=== PATIENT | female | born 1950 | race Caucasian/White ===

== ENCOUNTER 2020-05-28 12:42 | Inpatient (IN) | payer OTHER ==
[2020-05-27] MEDS: INSULIN LISPRO 100 UNITS/ML SUBCUT SCH (21:00)
[~2020-05-28] VITALS: Ht 154.9 cm; Wt 85.3 kg
[2020-05-28 13:55] LABS: BASOPHILS % 0.5 % (0.0-2.0); EOSINOPHILS % 1.6 % (0.0-5.0); HEMATOCRIT. 34.6 % (36.0-48.0); HEMOGLOBIN. 11.5 g/dL (12.0-16.0); LYMPHOCYTES % 23.1 % (20.0-50.0); MEAN CORPUSCULAR HEMOGLOBIN 28.2 pg (28.0-32.0); MEAN CORPUSCULAR VOLUME 85.3 fL (81.0-99.0); MEAN PLATELET VOLUME 8.8 fl (7.4-10.4); MONOCYTES % 9.4 % (2.0-8.0); NEUTROPHILS % 65.4 % (40.0-76.0); PLATELET 239 x1000/uL (130-400); RED BLOOD CELL COUNT 4.06 mill/uL (4.2-5.4); RED CELL DISTRIBUTION WIDTH 14.5 % (11.6-14.6)
[2020-05-28 14:00] LABS: CHLORIDE 107 mEq/L (98-107)
[2020-05-28 14:04] LABS: PROTHROMBIN TIME 10.1 sec (9.6-11.0)
[2020-05-28 14:07] LABS: CLARITY URINE TURBID (CLEAR); COLOR URINE YELLOW (YELLOW); KETONES URINE NEGATIVE (NEGATIVE); LEUKOCYTE ESTERASE URINE TRACE (NEGATIVE); NITRITE URINE NEGATIVE (NEGATIVE); OCCULT BLOOD URINE 3+ (NEGATIVE); PH URINE 6.5 (4.5-8.0); PROTEIN URINE NEGATIVE (NEGATIVE); SPECIFIC GRAVITY URINE 1.019 (1.005-1.030)
[2020-05-28] MEDS ORDERED: TETRACAINE 0.5% OPHTH DROPS 4ML RIGHTEYE ONE (15:30)
[2020-05-28] MEDS ORDERED: FLUORESCEIN SODIUM 1MG/STRIP RIGHTEYE ONE (15:30)
[2020-05-28] MEDS ORDERED: LORAZEPAM 0.5MG TABLET PO PRN (16:30)
[2020-05-28] MEDS ORDERED: CLONIDINE 0.1MG TABLET PO PRN (16:30)
[2020-05-28] MEDS ORDERED: MAGNESIUM/ALUMINUM HYDROXIDE/SIMETHICONE 30ML UDC PO PRN (16:30)
[2020-05-28] MEDS ORDERED: DIPHENHYDRAMINE 50MG/ML VIAL IV PRN (16:30)
[2020-05-28] MEDS ORDERED: NA PHOS,M-B/NA PHOS,DI-BA ENEMA 118ML PR PRN (16:30)
[2020-05-28] MEDS ORDERED: POLYMYXIN B SULFATE/TMP 10ML BOTTLE RIGHTEYE SCH (16:30)
[2020-05-28] MEDS ORDERED: DEXTROSE 50% WATER 50ML SYRINGE IV PRN (16:30)
[2020-05-28] MEDS ORDERED: ACETAMINOPHEN 650MG/20.3ML UDC GT PRN (16:30)
[2020-05-28] MEDS ORDERED: GUAIFENESIN 200MG/10ML SUGAR FREE UDC PO PRN (16:30)
[2020-05-28] MEDS ORDERED: IPRATROPIUM/ALBUTEROL 0.5-3(2.5)MG/3ML NEB NEB PRN (16:30)
[2020-05-28] MEDS ORDERED: ONDANSETRON HCL 4MG/2ML INJ IV PRN (16:30)
[2020-05-28] MEDS ORDERED: DOCUSATE SODIUM 100MG CAPSULE PO PRN (16:30)
[2020-05-28] MEDS: DEXT 5%/0.45% NACL 1000ML 1,000 ML IV SCH (17:00)
[2020-05-28] MEDS ORDERED: CEFTRIAXONE 1 G PREMIX 50 ML IV SCH (17:00)
[2020-05-28] MEDS: BLOOD SUGAR DIAGNOSTIC STRIP TEST SCH ×2 (18:00→21:00)
[2020-05-28] MEDS: PANTOPRAZOLE SODIUM 40 MG/VIAL IV SCH (18:00)
[2020-05-28] MEDS: INSULIN LISPRO 100 UNITS/ML SUBCUT SCH (21:00)
[2020-05-28] MEDS: HYDROCODONE/ACETAMINOPHEN 5/325MG TABLET PO PRN (22:04)
[2020-05-28 23:02] VITALS: BP 177/82
[2020-05-28 23:44] VITALS: BP 164/83
[2020-05-28 23:49] VITALS: BP_SYST 124; BP_SYST 164; BP_DIAS 64; BP_DIAS 83
[2020-05-29 01:13] LABS: HEMATOCRIT 33.2 % (36.0-48.0)
[2020-05-29 05:02] VITALS: BP 159/77
[2020-05-29 05:23] VITALS: BP 134/58
[2020-05-29] MEDS: HYDROCODONE/ACETAMINOPHEN 5/325MG TABLET PO PRN ×2 (05:53→12:55)
[2020-05-29] MEDS: INSULIN LISPRO 100 UNITS/ML SUBCUT SCH ×3 (06:02→17:39)
[2020-05-29] MEDS: BLOOD SUGAR DIAGNOSTIC STRIP TEST SCH ×3 (06:02→17:39)
[2020-05-29 07:16] LABS: BASOPHILS % 0.5 % (0.0-2.0); HEMATOCRIT. 31.5 % (36.0-48.0); HEMOGLOBIN. 10.4 g/dL (12.0-16.0); LYMPHOCYTES % 34.9 % (20.0-50.0); MEAN CORPUSCULAR HEMOGLOBIN 28.1 pg (28.0-32.0); MEAN CORPUSCULAR VOLUME 85.1 fL (81.0-99.0); MEAN PLATELET VOLUME 8.9 fl (7.4-10.4); MONOCYTES % 11.9 % (2.0-8.0); NEUTROPHILS % 49.7 % (40.0-76.0); PLATELET 195 x1000/uL (130-400); RED CELL DISTRIBUTION WIDTH 14.1 % (11.6-14.6)
[2020-05-29 08:00] VITALS: BP 145/53
[2020-05-29 08:03] LABS: CHLORIDE 107 mEq/L (98-107)
[2020-05-29 08:10] LABS: LDL CHOLESTEROL 145 mg/dL (5-100)
[2020-05-29 08:11] LABS: T4 FREE 0.86 ng/dL (0.76-1.46)
[2020-05-29 08:12] LABS: HDL CHOLESTEROL 32 mg/dL (40-59)
[2020-05-29] MEDS: PANTOPRAZOLE SODIUM 40 MG/VIAL IV SCH (08:31)
[2020-05-29] MEDS: DEXT 5%/0.45% NACL 1000ML 1,000 ML IV SCH (08:31)
[2020-05-29 09:41] LABS: OPIATES URINE SCREEN PRESUMTIVE POSITIVE (NEGATIVE)
[2020-05-29 09:42] LABS: *AMPHETAMINES SCREEN URINE NEGATIVE (NEGATIVE); *BARBITURATES SCREEN URINE NEGATIVE (NEGATIVE); *BENZODIAZEPINES SCREEN URINE NEGATIVE (NEGATIVE); *COCAINE SCREEN URINE NEGATIVE (NEGATIVE); CANNABINOID URINE SCREEN NEGATIVE (NEGATIVE); PHENCYCLIDINE URINE SCREEN NEGATIVE (NEGATIVE)
[2020-05-29 09:43] LABS: METHADONE URINE SCREEN NEGATIVE (NEGATIVE)
[2020-05-29] MEDS ORDERED: LACTULOSE 20G/30ML UDC PO NR (10:45)
[2020-05-29] MEDS ORDERED: SIME80TA15 MT (11:33)
[2020-05-29] MEDS ORDERED: GABA-531 MT (11:33)
[2020-05-29] MEDS ORDERED: BACL-141 PO (11:33)
[2020-05-29] MEDS ORDERED: DULO30CA2 PO (11:33)
[2020-05-29] MEDS ORDERED: AMLO5TAB88 MT (11:33)
[2020-05-29] MEDS ORDERED: SENN15TA MT (11:33)
[2020-05-29] MEDS ORDERED: METO-385 MT (11:33)
[2020-05-29] MEDS ORDERED: OFLO5DRO3 RIGHTEYE (11:33)
[2020-05-29] MEDS ORDERED: LISI40TA4 MT (11:33)
[2020-05-29] MEDS ORDERED: BEPO10DR RIGHTEYE (11:34)
[2020-05-29 11:49] VITALS: BP 146/62
[2020-05-29] MEDS ORDERED: CIPR-263 MT (14:30)
[2020-05-29] MEDS ORDERED: ATOR20TA PO (14:30)
[2020-05-29] MEDS ORDERED: PHEN51CR TP (14:30)
[2020-05-29] MEDS ORDERED: PROT40 MT (14:30)
[2020-05-29] MEDS ORDERED: TOBR5DRO2 EACHEYE (14:30)
[2020-05-29] MEDS ORDERED: HEMORRHOIDAL SUPP PR SCH (15:00)
[2020-05-29 16:21] LABS: HEMATOCRIT 33.4 % (36.0-48.0); HEMOGLOBIN 11.1 g/dL (12.0-16.0)
[2020-05-29 16:32] LABS: TOTAL IRON BINDING CAPACITY 423 ug/dL (250-450)
[2020-05-29 16:48] LABS: FOLIC ACID (FOLATE) SERUM 14.5 ng/mL (>5.38)
[2020-05-29] MEDS ORDERED: CEFTRIAXONE 1,000 MG in DEXTROSE 5% WATER 50 ML IV SCH (17:00)
[2020-05-29 17:40] VITALS: BP 140/56
== END 2020-05-29 18:25 | disposition home or self-care (01) | DRG 394 ==
LOC: ER 13:01 → 8WST 16:26 → SUPCPDRO 16:47 → ENRESERV 20:24
PROVIDERS: ADMIT Internal Medicine; ATTEND Internal Medicine
DX: K64.9 Unspecified hemorrhoids (principal); N39.0 Urinary tract infection, site not specified; E11.9 Type 2 diabetes mellitus without complications; D50.9 Iron deficiency anemia, unspecified; E66.9 Obesity, unspecified; E78.00 Pure hypercholesterolemia, unspecified; E78.5 Hyperlipidemia, unspecified; F32.9 Major depressive disorder, single episode, unspecified; F41.9 Anxiety disorder, unspecified; I10 Essential (primary) hypertension; H10.89 Other conjunctivitis; I27.20 Pulmonary hypertension, unspecified; R31.9 Hematuria, unspecified; J45.909 Unspecified asthma, uncomplicated; K76.0 Fatty (change of) liver, not elsewhere classified; M19.90 Unspecified osteoarthritis, unspecified site; M79.7 Fibromyalgia; Z59.0 Homelessness; Z79.899 Other long term (current) drug therapy; Z91.5 Personal history of self-harm; Z68.35 Body mass index [BMI] 35.0-35.9, adult; Z79.51 Long term (current) use of inhaled steroids
CPT/HCPCS: 36415; 74176; 80053; 80061; 80305; 81003; 82270; 82607; 82728; 82746; 82962; 83036; 83540; 83550; 84439; 84443; 85014; 85018; 85025; 85044; 85651; 86850; 86900; 93005; 93306; 93970; 97162; 99285; C9113; J0696